=== PATIENT | male | born 1940 | race Caucasian/White ===

== ENCOUNTER 2022-03-02 05:00 | Emergency (ER) | payer MEDICARE, SELFPAY ==
[2022-03-02 05:04] VITALS: BP 147/75; PULSE 57; RESP 16; TEMP 36.2; O2SAT 98
[2022-03-02 05:55] LABS: Add Urine Microscopic? YES; Appearance Urine Turbid (Clear); Bacteria Urine 4+ /hpf; Bilirubin Urine Negative (Negative); Blood Urine 1+ (Negative); Color Urine Yellow (Yellow); Glucose Urine UA Negative (Negative); Ketones Urine Negative (Negative); Leukocyte Esterase Ur 2+ LEU/UL (Negative); Nitrate Urine Negative (Negative); Protein Urine 2+ mg/dL (Negative); Squamous Epithelial Cell Urine Many /hpf (Few); Urobilinogen Urine Negative mg/dL (<2.0); WBC Clumps Urine Present /HPF; WBC Urine >75 /hpf
--- NOTE | 2022-03-02 06:06 | PC.NURSE ---
Dr. Rondon at bedside to assess pt.
--- NOTE | 2022-03-02 06:32 | ED.GENADULT ---
HPI - General Adult General Chief complaint: Urogenital-Male Stated complaint: Groin Pain Time Seen by Provider: 03/02/22 06:03 History of Present Illness HPI narrative: Patient is a 81-year-old male who presents the ER with concerns for UTI. Reports for the last 2 days has been having burning urination as well as urinary frequency and urgency. No blood in his urine. No urinary retention. Denies pain in his testicles. No history of UTI previously. Feels a little pressure going back into his buttock as well. He is without diarrhea. He was post see his PCP today but cannot wait any longer. Related Data Allergies Allergy/AdvReac Type Severity Reaction Status Date / Time No Known Allergies Allergy Verified 03/02/22 05:07 Review of Systems Review of Systems: All systems reviewed & are unremarkable except as noted in HPI and below Constitutional: Constitutional: Denies chills and Denies fever(s) Gastrointestinal: Gastrointestinal: Denies abdominal pain, Denies nausea and Denies vomiting Genitourinary: Genitourinary: Reports dysuria, Denies penile discharge, Denies testicular pain and Reports urinary frequency PMFSH Past Medical History Medical History (Updated 03/02/22 @ 07:00 by Will Rondon MD) Coronary artery disease Surgical History Surgical History (Updated 03/02/22 @ 07:00 by Will Rondon MD) History of percutaneous coronary intervention Exam Narrative: GENERAL: Well-appearing, well-nourished, and in no acute distress. HEAD: Normocephalic, atraumatic. CHEST: Clear to auscultation. No respiratory distress. HEART: Regular rate and rhythm. Normal peripheral pulses. ABDOMEN: Soft, nontender, nondistended, no CVA tenderness. EXTREMITIES: Normal range of motion. No edema. SKIN: Warm, dry, no rash. NEURO: Alert and oriented x3. PSYCH: Normal mood and affect. Course Course Emergency Course: We will treat with Bactrim and Pyridium. Recommend he contact his PCP to ensure his urine culture correlates with antibiotic he has been placed on. Vital Signs Vital signs: Vital Signs Temperature 97.2 F L 03/02/22 05:04 Pulse Rate 57 L 03/02/22 05:04 Respiratory Rate 16 03/02/22 05:04 Blood Pressure 147/75 H 03/02/22 05:04 Pulse Oximetry 98 03/02/22 05:04 Oxygen Delivery Room Air 03/02/22 05:04 Temperature 97.2 F L 03/02/22 05:04 Pulse Rate 57 L 03/02/22 05:04 Respiratory Rate 16 03/02/22 05:04 Blood Pressure 147/75 H 03/02/22 05:04 Pulse Oximetry 98 03/02/22 05:04 Oxygen Delivery Room Air 03/02/22 05:04 Medical Decision Making Vital Signs Vital Signs: Vital Signs Temperature 97.2 F L 03/02/22 05:04 Pulse Rate 57 L 03/02/22 05:04 Respiratory Rate 16 03/02/22 05:04 Blood Pressure 147/75 H 03/02/22 05:04 Pulse Oximetry 98 03/02/22 05:04 Oxygen Delivery Room Air 03/02/22 05:04 Temperature 97.2 F L 03/02/22 05:04 Pulse Rate 57 L 03/02/22 05:04 Respiratory Rate 16 03/02/22 05:04 Blood Pressure 147/75 H 03/02/22 05:04 Pulse Oximetry 98 03/02/22 05:04 Oxygen Delivery Room Air 03/02/22 05:04 Lab Data Labs: Lab Results 03/02/22 Range/Units 05:24 Urine Color Yellow (Yellow) Urine Appearance Turbid H (Clear) Urine pH 5.0 (5.0-9.0) Ur Specific [place] 1.020 (1.001-1.035) Urine Protein 2+ H (Negative) mg/dL Urine Glucose (UA) Negative (Negative) mg/dL Urine Ketones Negative (Negative) mg/dL Ur Blood (Man) 1+ H (Negative) Urine Nitrate Negative (Negative) Urine Bilirubin Negative (Negative) Urine Urobilinogen Negative (<2.0) mg/dL Leukocyte Esterase Rfl 2+ H (Negative) FERMIN/UL Urine WBC >75 H /hpf Urine WBC Clumps Present H (None) /HPF Ur Squamous Epith Cells Many H (Few) /hpf Urine Bacteria 4+ H /hpf Discharge Plan Discharge Clinical Impression: Urinary tract infection Patient Disposition: Home, Self-Care Condition: Stable Instructi
[2022-03-02] MEDS: SULFAMETHOXAZOLE/TRIMETHOPRIM 800/160 MG DS TABLET 1 TAB PO (06:34)
--- NOTE | 2022-03-02 07:04 | PC.NURSE ---
Patient report given to [facility]. All questions answered and care of patient transferred.
== END 2022-03-02 07:11 | disposition home or self-care (01) ==
LOC: ANHED 06:41
PROVIDERS: Emergency Provider Emergency Medicine; PCP Internal Medicine
DX: N39.0 Urinary tract infection, site not specified (principal); I25.10 Atherosclerotic heart disease of native coronary artery without angina pectoris
CPT/HCPCS: 81001; 87086; 99283; A9270